=== PATIENT | female | born 1990 | race Caucasian/White ===

== ENCOUNTER 2018-03-07 02:39 | Emergency (ER) | payer SELFPAY ==
--- NOTE | 2018-03-07 02:58 | EDM.PDOC ---
ED HPI GENERAL MEDICAL PROBLEM - General Chief Complaint: Upper Extremity Injury/Pain Stated Complaint: swelling of finger Time Seen by Provider: 03/07/18 02:45 Source of Information: Reports: Patient, RN, RN Notes Reviewed History Limitations: Reports: No Limitations - History of Present Illness INITIAL COMMENTS - FREE TEXT/NARRATIVE: Patient presents to the ED at [facility] complaining of swelling and pain to the right index finger. Patient states the symptoms started 3 days ago. No injury or trauma. No previous finger surgeries. 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 Patient states the affected finger feels warm and tender to touch. Onset Date: 03/04/18 Duration: Constant Location: Reports: Upper Extremity, Right Quality: Reports: Burning Severity: Moderate Improves with: Reports: Rest Worsens with: Reports: Movement Context: Denies: Exercise, Sick Contact, Trauma Associated Symptoms: Reports: No Other Symptoms Right 2-Index finger Pain Score (Numeric/FACES): 6 - Related Data Allergies Allergy/AdvReac Type Severity Reaction Status Date / Time No Known Allergies Allergy Verified 03/07/18 02:43 Home Meds: Home Meds Amoxicillin/Potassium Clav [Augmentin 875-125 Tablet] 1 tab PO BID 7 Days #14 tablet 03/07/18 [Rx] predniSONE [Deltasone] 1 tab PO BID 5 Days #10 tablet 03/07/18 [Rx] Past Medical History - Past Health History Medical/Surgical History: Denies Medical/Surgical History Social & Family History - Tobacco Use Smoking Status *Q: Current Every Day Smoker Years of Tobacco use: 10 Packs/Tins Daily: 0.5 Review of Systems - Review of Systems Review Of Systems: See Below Constitutional: Denies: Chills, Fever Respiratory: Denies: Shortness of Breath, Cough Cardiovascular: Denies: Chest Pain, Palpitations Musculoskeletal: Reports: Joint Pain (right index finger), Joint Swelling Skin: Reports: Erythema (right index finger) Neurological: Reports: No Symptoms. Denies: Numbness, Paresthesia, Tingling ED EXAM, GENERAL - Physical Exam Exam: See Below Exam Limited By: No Limitations General Appearance: Alert, No Apparent Distress Respiratory/Chest: No Respiratory Distress, Lungs Clear, Normal Breath Sounds Cardiovascular: Normal Peripheral Pulses, Regular Rate, Rhythm Peripheral Pulses: 2+: Radial (L), Radial (R) Extremities: Joint Swelling, Limited Range of Motion (right index finger), Increased Warmth, Redness Neurological: Alert, Oriented, No Motor/Sensory Deficits Skin Exam: Warm, Dry, Intact Course - Vital Signs Last Recorded V/S: Last Vital Signs Temp 36.6 C 03/07/18 02:40 Pulse 90 03/07/18 02:40 Resp 16 03/07/18 02:40 BP 128/73 03/07/18 02:40 Pulse Ox 98 03/07/18 02:40 Departure - Departure Time of Disposition: 03:00 Disposition: Home, Self-Care 01 Condition: Good Clinical Impression: Swelling of finger joint Qualifiers: Laterality: right Qualified Code(s): M25.441 - Effusion, right hand - Discharge Information Prescriptions: Amoxicillin/Potassium Clav [Augmentin 875-125 Tablet] 1 tab PO BID 7 Days #14 tablet predniSONE [Deltasone] 1 tab PO BID 5 Days #10 tablet Referrals: [facility] [Ordering Only Provider] - Additional Instructions: 1. Stay well hydrated and rest 2. Take medications for the full coarse, even if you are feeling better 3. Ice the affected area several times a day 4. May alternate Tylenol/Advil as needed for pain/discomfort 5. No work restrictions 6. It may take another 3-4 days before any improvement, be patient 7. See a provider at [facility] for a follow up in about a week 8. Call use with any questions, concerns - Problem List Review Problem List Initiated/Reviewed/Updated: Yes - Assessment/Plan Assessment:: Swelling of right index finger Plan: Given assessment findings and no trauma, no xray is warrant. I believe the patients symptoms are from overuse from painting all day earlier today, however , her symptoms started 3 days ago. Painting today certainly could have aggravated the right index finger. Will prophylactically tx with abx and steroid. Told patient it may take another 3-4 days before she sees any improvement.
== END 2018-03-07 03:11 | disposition home or self-care (01) ==
LOC: VM.ED 02:39
DX: M25.441 Effusion, right hand (principal); F17.210 Nicotine dependence, cigarettes, uncomplicated
CPT/HCPCS: 99282; 99283-GF

== ENCOUNTER 2024-08-26 01:04 | Emergency (ER) | payer MEDICAID ==
[2024-08-26] MEDS: diphenhydrAMINE 25 MG Cap PO ONE (01:30)
[2024-08-26] MEDS: Ketorolac 30 MG/ML SDV IM ONE (01:31)
[2024-08-26] MEDS: Ondansetron 4 MG Tab.DIS PO ONE (01:31)
== END 2024-08-26 01:45 | disposition home or self-care (01) ==
LOC: VM.ED 01:04
DX: R51.9 Headache, unspecified (principal); Z79.899 Other long term (current) drug therapy
CPT/HCPCS: 96372; 99283; A9270-GY; J1885

== ENCOUNTER 2025-06-10 00:50 | Emergency (ER) | payer MEDICAID ==
[2025-06-10] MEDS: cefTRIAXone 1 GM, Lidocaine 1% 2.1 ML IM ONE (01:20)
[2025-06-10] MEDS: Ketorolac 30 MG/ML SDV IM ONE (01:21)
[2025-06-10] MEDS: Take Home: Acetaminophen/Codeine 300 MG/30 MG, 5 Tab Pack PO ONE (01:25)
== END 2025-06-10 01:35 | disposition home or self-care (01) ==
LOC: VM.ED 00:50
DX: K02.9 Dental caries, unspecified (principal)
CPT/HCPCS: 96372; 99282; A9270; J0696; J1885; J2003